=== PATIENT | female | born 1975 | race American Indian/Alaskan Native ===

== ENCOUNTER 2016-11-26 06:19 | Inpatient (IN) | payer OTHER ==
[2016-11-24 12:23] VITALS: BMI 26.6
[2016-11-26] MEDS ORDERED: ceFAZolin IV 2 gm in Dextrose 1 GM/50 ML BAG IVPB ONE (06:49)
[2016-11-26] MEDS ORDERED: Bupivacaine/Epi 0.25%-1:200,000 10 ml PF inj IJ ONE (06:50)
[2016-11-26] MEDS ORDERED: Propofol 10 mg/ml Inj (20 ML) ONE (07:38)
[2016-11-26] MEDS ORDERED: Midazolam 2 MG/2 ML VIAL ONE (07:38)
[2016-11-26] MEDS ORDERED: Lactated Ringer's 1,000 ML IV ONE ×6 (09:00→14:55)
[2016-11-26] MEDS ORDERED: Phenylephrine 10 mg/ml Inj ONE (09:23)
[2016-11-26] MEDS ORDERED: Bupivacaine Liposomal Inj 20 ml INJ ONE (09:28)
[2016-11-26] MEDS ORDERED: Neostigmine Methylsulfate 3mg/3ml Syringe IV ONE (13:24)
[2016-11-26] MEDS ORDERED: Morphine 4 MG/ML VIAL ONE (13:56)
[2016-11-26] MEDS ORDERED: Morphine Monoject Barrel PCA 1mg/ml IV PRN (14:05)
--- NOTE | 2016-11-26 14:46 | PCM.SURG1 ---
Surgeon's Initial Post Op Note - Surgeon's Notes Surgeon: tony quigley md Silver Cleaner: dorinda POST Type of Anesthesia: General Endo, Local Pre-Operative Diagnosis: Chronic pelvic pain. Abnormal uterine bleeding. Endometriosis. fibroid uterus Operative Findings: This was a surgical case of a frozen abdomen due to severe and distorted abdominal and pelvic anatomy. Severe bowel adhessions peritoneal adhessions. enlarged fibroid uterus. Stage 4 endometriosis. severe bowel adhessions at the umbilicus and site of prior bowel. abstruction surgery. large endometrioma left adnexa. normal bladder anatomy as per cystoscopy at the end of the procedure. . Detailed operative report. This is a 41 years old -Citizen Of The [place] female with long-standing history of worsening chronic pelvic pain and dyspareunia, as well as persistent complex adnexal masses. The patient has a known diagnosis of severe endometriosis, enlarged fibroid uterus and associated infertility for many years. The patient underwent several procedures in the past including myomectomies as well as excision of endometriosis which was found to be stage IV last year as well as laparotomy for bowel obstruction following a myomectomy years back. The patient completed her robotic excision of endometriosis last year, it is significantly improved period of time with reduced pelvic pain, reduced abnormal uterine bleeding. A couple of months ago the patient started complaining of severe pain, multiple ER visits for pain management for the recurrence of endometriosis and uterine fibroids. The patient failed conservative management in the past year. The patient completed a reproductive endocrinology consultation following the myomectomy and excision of endometriosis last year. The patient was told all suboptimal ovarian reserve and inability to carry a viable . The patient attempted to proceed with IVF treatment however it was argued against by the narrative writer. Recently the patient agreed to proceed with a hysterectomy as well as excision of a large endometrioma which recurred recently he noted to alleviate this chronic debilitating pelvic pain for many years. Recently done Pelvic MRI was completed as well indicating a large left adnexal mass likely an endometrioma as well as fibroid uterus. Decision was made to proceed with definitive surgical management namely a hysterectomy as well as possible bilateral oophorectomy. The patient clearly understood this definitive decision and understood that a hysterectomy will completely eliminate any possibility of future fertility. In addition the patient understood that removing her ovaries will place her into immediate surgical menopause if both ovaries were to be removed. Lastly, the patient clearly understood the great risk of this recurrent surgery in light of prior multiple abdominal surgeries showing severe bowel adhesions and distorted pelvic and abdominal anatomy due to her endometriosis and prior surgeries. The patient was well aware of the risk of the need to possibly convert from her robotic procedure to an open laparotomy if needed. In addition, the patient understood the risk of possible bowel injury and bowel compromise in completing this very difficult anticipated hysterectomy. Following complete workup at the office which included an ultrasound, biopsies as well as Pap smear a decision was made to proceed with a robotic assisted hysterectomy possible bilateral salpingo- oophorectomy and excision of large left adnexal mass. After proper consent was obtained from the patient she was taken to the operating room where general anesthesia was obtained without difficulty. She was placed in dorsal lithotomy position her legs were placed in adjustable Chadwick stirrups. Careful attention was placed not to over-flex or over-rotate the lower extremities at the hip or at the knee joints. She was prepped and draped appropriately for robotic assisted hysterectomy bilateral salpingo-oophorectomy possible. Solo catheter was inserted under sterile conditions. Exam under anesthesia revealed an enlarged fibroid uterus, large left adnexal mass approximately 10 cm in diameter. Multiple nodules could be palpated in the posterior vagina. In anticipation of a very difficult surgical procedure, a cystoscopy was performed in the beginning of the case, both ureters were stented and an icy green solution was infused to aid in the visualization of both ureters during the difficult surgical dissection. This year ureters cannulation and infusion of the icy green contrast material was completed without difficulty. A standard size Vcare uterine manipulator was inserted through the cervix and secured. Local anesthetic solutions of quarter percent Marcaine was utilized to infiltrate the skin prior to any skin incision. A total of 10-15 mL of 0.25% Marcaine was utilized throughout the procedure. While tenting the abdominal wall a Veress needle was inserted through the umbilicus and pneumoperitoneum was obtained. in anticipation of severe intra-abdominal adhesions and left upper quadrants insurance legal assistant port was inserted first. A 0.8 cm incision was made approximately 7 cm lateral to the umbilicus and a robotic trocar and sleeve were introduced. Robotic camera was inserted and initial survey of the patient's abdomen and pelvis revealed essentially a frozen abdomen. Severe intra -abdominal intrapelvic bowel and peritoneal adhesions. Dense bowel adhesions involving multiple loops of bowel to the anterior abdominal wall as well as to the pelvic sidewall and to the bladder was apparent. An additional port approximately 7 cm left lateral to the first robotic port was inserted as an operative ports for lysis of adhesions and enter lysis. Utilizing sharp and blunt dissection in a very meticulous and careful way extensive lysis of adhesions as well as anterolysis was carried for several hours. Over the particular concern, dense and tightly adherent loops of small bowel were adherent to the umbilicus and to the midline periumbilical abdominal wall. It was noted that that part of the small intestine was involved. The bowel obstruction and bowel surgery several years back, evidence by the silk sutures visualized on the serosa. Complete lysis of adhesions was accomplished in order to visualize the uterus as well as the adnexal mass. A careful and meticulous inspection of the bowel revealed a possible small bowel compromise to the segment tightly adherent to the umbilicus. Decision was made to proceed with intraoperative consultation for possible bowel repair if bowel compromise was evident. Dr. Gupta was called for this consultation. Following a careful inspection decision was made to proceed with a laparotomy for completion of these hysterectomy and excision of adnexal mass as well as repair of small bowel small segment bowel compromise from these tight adhesions. All robotic and laparoscopic instruments were removed under direct visualization. Peritoneum was reduced. And a laparotomy tray and instruments were brought into the room. The robotic instruments were revealed away from the patients bedside. The patient was once again prepped and draped appropriately for laparotomy placed in dorsal lithotomy position. A vertical incision was used to produce procedure, the patient had a vertical incision that keloid from her bowel obstruction surgery years back. Decision was made to remove the large keloid and incision was completed from the suprapubic region all the way several centimeters above the umbilicus. The incision was taken down to the level of the rectus fascia. The fascia was incised in the midline and the incision was extended superiorly and inferiorly in a meticulous and careful fashion. The rectus muscles were then in the midline and incision was extended. The peritoneal cavity was entered and with very careful dissection the bowel which was tightly adherent to the anterior abdominal wall was dissected off carefully. Long and meticulous and careful bowel adhesions dissection was completed and a survey of the entire bowel was completed. A small segment of a small intestine twitch was adherent to the umbilicus was found to have a small significant bowel compromised, according to the general surgeon, Dr. Gupta needed primary repair closure. Please see separate dictation for these bowel repair procedure by Dr. Gupta. Following the completion of these bowel repair, decision was made to proceed with a supracervical hysterectomy bilateral salpingectomy and left adnexal mass excision. Decision was made to preserve the right ovary and remove the left ovary along with adnexal mass. At this time extensive lysis of adhesions freed up the uterus as well as right and left adnexa. The round ligament on the right side was grasped, utilizing the LigaSure device the round ligament was sealed and transected the broad ligament was sealed and transected and carried down all the way to the cervical uterine junction. The right fallopian tube was excised and sent to pathology labeled properly. The right utero-ovarian ligament was sealed and transected preserving the right ovary. In a similar fashion on the patients left side the round ligament was sealed and transected ligament was sealed and divided all the way down to the level of the cervical uterine junction. Bladder flap was created digitally. The uterine vessels on both sides were doubly ligated sealed and transected. The uterus was amputated at the level of the cervix, extracted from the abdomen and sent to pathology. At this time attention was then turned to the left adnexa with a left adnexal mass was meticulously dissected off after both ureters were explored and the retroperitoneum to ascertain safety and avoid compromise during these difficult dissection. Due to the severely distorted pelvic anatomy was necessary to open the retroperitoneum and to dissect out the ureters bilaterally. Both ureters and their courses were visualized, peristalsing without difficulty. Initial in meticulous fashion the bowel adhesions were lysed in multiple areas as well as from the pelvic sidewall. The left adnexal mass which turned out to be a large endometrioma was enucleated and sent to pathology. The abdomen and pelvis were throughout irrigated and cleared of all clots and debris. The peritoneum over D cervical stump was reapproximated after the cervix was ligated with multiple interrupted sutures utilizing 0 Vicryl suture material. Excellent hemostasis was noted. FloSeal as well as fibrillar was utilized to aid in hemostasis. To close this midline vertical incision initially the peritoneum was closed with 2- 0 chromic in continuous fashion. A #1 loop PDS was utilized to close the abdominal fascia in continuous fashion. The subcutaneous adipose tissue was reapproximated with 2-0 chromic in interrupted fashion. Lobo were utilized to close the skin. Pressure dressing was applied to the incision. Due to the extremely distorted pelvic anatomy and the difficulty of completing this procedure, a diagnostic cystoscopy was necessary at the end of the procedure to ascertain uncompromised bladder anatomy. A 30 cystoscope was inserted following the filling / distention of the bladder with approximately 300 mL of normal saline. The dome of the bladder as well as the trigone appeared uncompromised, both ureters were effluxing urine freely, the urethra was normal appearing, no compromise was noted to the bladder. Solo catheter was reinserted to be taken out to next day. All skin incisions were closed utilizing a 4-0 Monocryl in a subcutaneous fashion, Dermabond was applied to all incisions. The camera as well as the insurance legal assistant port were closed in a fascial layer utilizing 2-0 Vicryl in an interrupted fashion. Prior to incision patient received prophylactic antibiotics, prior to closure sponge lap and needle counts are correct x2. Patient tolerated the procedure well and was taken to recovery room in stable condition. Note: This was an exceptionally difficult surgical case due to the severe pelvic viscera anatomical distortion as well as severe bowel adhesions and peritoneal adhesions making it difficult to access the pelvic mass and restore somewhat normal pelvic anatomy. The surgery required a high level of the robotic surgical expertise from the main surgeon as well as the insurance legal assistant surgeons. Post-Operative Diagnosis: Chronic pelvic pain. Abnormal uterine bleeding. Endometriosis. fibroid uterus. Inadvertent enterotomy Operation Performed: robotic hysterectomy BSO attempted >250g. laparotomy abdominal hysterectomy LSO, right salpingectomy. Excision of adnexal mass endometrioma. Extensive lysis of adhessions and enterolysis. canulation stenting of ureters. Exploration of ureters. Cystoscopy. extermly difficult surgical case, required long hours and extreme difficulty due to prior abdominal surgery, stage 4 endoemtriosis, and prior bowel surgery for bowel abstruction in the past. repari of enterotomy by Dr. Gupta intraoperative consultation see sep dictation for the bowel repair. Specimen/Specimens Removed: uterus, tubes and left ovary. left endometrioma Estimated Blood Loss: EBL {In ML}: 500 Blood Products Given: N/A Drains Used: No Drains Post-Op Condition: Good Date of Surgery/Procedure: 11/26/16 Time of Surgery/Procedure: 14:50
[2016-11-26] MEDS ORDERED: Oxycodone/Acetaminophen 5/325 mg Tab PO PRN (14:51)
[2016-11-26] MEDS ORDERED: Trimethobenzamide 200 mg/2 mL Inj IM PRN (14:51)
[2016-11-26] MEDS ORDERED: HYDROmorphone 0.5 mg/0.5 ml ISec ONE (15:07)
[2016-11-26] MEDS: HYDROmorphone 0.5 mg/0.5 ml ISec IVP PRN ×6 (15:23→16:42)
[2016-11-26] MEDS ORDERED: Sodium Chloride 0.9% 1,000 ML IV ONE (16:00)
--- NOTE | 2016-11-26 17:10 | OP ---
PROCEDURE DATE: 11/26/2016 PREOPERATIVE DIAGNOSES: Fibroid uterus, abnormal uterine bleeding, pelvic pain. POSTOPERATIVE DIAGNOSES: Fibroid uterus, abnormal uterine bleeding, pelvic pain. PROCEDURE CARRIED OUT: Exploratory laparotomy and repair of enterotomy. SURGEON: Alon Gupta Jr., MD SOLUTION DESIGN AND ANALYSIS MANAGER: Dr. Boyle ANESTHESIOLOGIST: Mr. Wiseman INDICATIONS: The patient is a 41-year-old woman with a history of multiple problems who I was asked to see on an emergent basis while the patient was under anesthesia and undergoing a robotic hysterect radha. This is suspected bowel injury. DESCRIPTION OF PROCEDURE: The patient was examined with Dr Boyle. Laparoscopically there was a que stion as to a small area adjacent to the anterior abdominal wall. Based on this, we then explored th e area and found that there was, indeed, small bowel. This however, required taking down multiple ad hesions throughout the anterior abdominal wall and exploring the entire abdomen. No other pathology was found except for a large mass in the pelvis. Then, we explored the bowel and identified, also, t he large mass associated with the uterus. This was dissected away, freed up, and then a TA-30 staple r was used across the enterotomy to close it. An additional area adjacent to it, which was in the mi d small bowel, was also controlled with the use of sutures, but this was only a serosal tear. After this was done, Dr. Boyle continued the procedure. My part of the procedure was closure of an entero jourdan. Alon Gupta Jr., MD cc: 56 TT: 11/26/2016 17:09:24 dn
[2016-11-26] MEDS: Sodium Chloride 0.9% 1,000 ML IV SCH (17:30)
[2016-11-26] MEDS: cefOXitin IV 2 gm in Dextrose 2 GM/50 ML BAG IVPB SCH (20:22)
[2016-11-27] MEDS: cefOXitin IV 2 gm in Dextrose 2 GM/50 ML BAG IVPB SCH ×2 (00:39→06:22)
[2016-11-27] MEDS: Sodium Chloride 0.9% 1,000 ML IV SCH ×4 (00:41→17:44)
[2016-11-27 02:29] VITALS: RESP 20
[2016-11-27 08:48] LABS: HEMATOCRIT 29.8 % (34.0-47.0); MEAN CELL VOLUME 89.3 fL (81.0-99.0); MEAN CORPUSCULAR HEMOGLOBIN 29.4 pg (27.0-31.0); MEAN CORPUSCULAR HGB CONC 32.9 g/dL (33.0-37.0); MEAN PLATELET VOLUME 9.9 fL (7.2-11.7); RED CELL DISTRIBUTION WIDTH 12.5 % (11.5-14.5); WHITE BLOOD COUNT 9.8 K/uL (4.8-10.8)
[2016-11-27 09:55] LABS: CHLORIDE 100 mmol/L (98-107); POTASSIUM 3.8 mmol/L (3.6-5.2); SODIUM 134 mmol/L (132-148)
[2016-11-27 09:58] LABS: BLOOD UREA NITROGEN 10 mg/dL (7-17); CALCIUM 7.9 mg/dl (8.6-10.4); CARBON DIOXIDE 26 mmol/L (22-30); GFR AFRICAN-AMERICAN > 60; GLUCOSE,RANDOM 84 mg/dL (65-105)
[2016-11-27] MEDS ORDERED: Oxycodone/Acetaminophen 5/325 mg Tab PO PRN (16:55)
[2016-11-27] MEDS ORDERED: Morphine 4 MG/ML VIAL IVP PRN (17:29)
--- NOTE | 2016-11-27 19:30 | CP.PCM.PN ---
Subjective - Date & Time of Evaluation Date of Evaluation: 11/27/16 Time of Evaluation: 06:45 - Subjective Subjective: Gen Sx: Dr Gupta Pt S&E. ROQUEO. POD#1 s/p robotic hysterectomy w/ ex-lap for LANDON and small bowel enterotomy. Pt states pain is well controlled. Denies N/V, F/C. Using incentive spirometer. Objective - Vital Signs/Intake and Output Vital Signs (last 24 hours): Temp Pulse Resp BP Pulse Ox 98.3 F 86 20 103/64 94 L 11/27/16 16:44 11/27/16 16:44 11/27/16 16:44 11/27/16 16:44 11/27/16 16:44 Intake and Output: 11/27/16 11/28/16 18:59 06:59 Intake Total 8060 Output Total 750 Balance 7310 - Medications Medications: Current Medications Acetaminophen (Tylenol 325mg Tab) 650 mg PO Q6 PRN PRN Reason: Pain, Mild (1-3) Last Admin: 11/27/16 10:39 Dose: 650 mg Sodium Chloride (Sodium Chloride 0.9%) 1,000 mls @ 125 mls/hr IV .Q8H KHOA Last Admin: 11/27/16 17:44 Dose: 125 mls/hr Ketorolac Tromethamine (Toradol) 30 mg IVP Q8H KHOA Stop: 11/29/16 17:01 Last Admin: 11/27/16 17:32 Dose: 30 mg Morphine Sulfate (Morphine) 4 mg IVP Q4 PRN PRN Reason: Severe pain 7 to 10 Ondansetron HCl (Zofran Inj) 4 mg IVP ONCE PRN PRN Reason: Nausea/Vomiting Oxycodone/Acetaminophen (Percocet 5/325 Mg Tab) 2 tab PO Q6H PRN PRN Reason: Mod pain 4 to 6 pain scale Stop: 11/30/16 16:56 Trimethobenzamide HCl (Tigan) 200 mg IM Q6 PRN PRN Reason: Nausea/Vomiting - Labs Labs: 11/27/16 08:27 11/27/16 08:27 - Constitutional Appears: Non-toxic, No Acute Distress - ENT Exam ENT Exam: Mucous Membranes Moist - Respiratory Exam Respiratory Exam: absent: Accessory Muscle Use, Respiratory Distress - Cardiovascular Exam Cardiovascular Exam: REGULAR RHYTHM - GI/Abdominal Exam GI & Abdominal Exam: Soft, Tenderness (post-op and appropriate). absent: Distended, Firm - Neurological Exam Neurological Exam: Alert, Awake, Oriented x3 - Psychiatric Exam Psychiatric exam: Normal Affect, Normal Mood - Skin Skin Exam: Normal Color, Warm Assessment and Plan - Assessment and Plan (Free Text) Assessment: Ok to start CLD further mgmt per Dr Boyle d/w Dr Alonso Martinez, PGY2
[2016-11-27] MEDS ORDERED: Morphine 4 MG/ML VIAL IV SCH (20:00)
--- NOTE | 2016-11-27 21:24 | CP.PCM.PN ---
Subjective - Date & Time of Evaluation Date of Evaluation: 11/27/16 Time of Evaluation: 09:00 - Subjective Subjective: pt reports feeling well, denied any SOB or palpitations, denied any cough. pt with adequate analgesia currently with CEMENTER HAND, folley catheter draining adequately. Objective - Vital Signs/Intake and Output Vital Signs (last 24 hours): Temp Pulse Resp BP Pulse Ox 98.3 F 86 20 103/64 94 L 11/27/16 16:44 11/27/16 16:44 11/27/16 16:44 11/27/16 16:44 11/27/16 16:44 Intake and Output: 11/27/16 11/28/16 18:59 06:59 Intake Total 8060 Output Total 750 Balance 7310 - Medications Medications: Current Medications Acetaminophen (Tylenol 325mg Tab) 650 mg PO Q6 PRN PRN Reason: Pain, Mild (1-3) Last Admin: 11/27/16 10:39 Dose: 650 mg Sodium Chloride (Sodium Chloride 0.9%) 1,000 mls @ 125 mls/hr IV .Q8H KHOA Last Admin: 11/27/16 17:44 Dose: 125 mls/hr Ketorolac Tromethamine (Toradol) 30 mg IVP Q8H KHOA Stop: 11/29/16 17:01 Last Admin: 11/27/16 17:32 Dose: 30 mg Morphine Sulfate (Morphine) 4 mg IVP Q4 PRN PRN Reason: Severe pain 7 to 10 Ondansetron HCl (Zofran Inj) 4 mg IVP ONCE PRN PRN Reason: Nausea/Vomiting Oxycodone/Acetaminophen (Percocet 5/325 Mg Tab) 2 tab PO Q6H PRN PRN Reason: Mod pain 4 to 6 pain scale Stop: 11/30/16 16:56 Trimethobenzamide HCl (Tigan) 200 mg IM Q6 PRN PRN Reason: Nausea/Vomiting - Labs Labs: 11/27/16 08:27 11/27/16 08:27 - Constitutional Appears: Well, Non-toxic, No Acute Distress - Head Exam Head Exam: ATRAUMATIC - Eye Exam Eye Exam: EOMI - ENT Exam ENT Exam: Normal Exam - Neck Exam Neck Exam: Full ROM - Respiratory Exam Respiratory Exam: Clear to Ausculation Bilateral, NORMAL BREATHING PATTERN - Cardiovascular Exam Cardiovascular Exam: REGULAR RHYTHM - GI/Abdominal Exam GI & Abdominal Exam: Firm, Diminished Bowel Sounds - Extremities Exam Extremities Exam: Full ROM, Normal Inspection - Neurological Exam Neurological Exam: Alert, Awake, Oriented x3 - Psychiatric Exam Psychiatric exam: Normal Affect, Normal Mood - Skin Skin Exam: Intact, Normal Color Assessment and Plan - Assessment and Plan (Free Text) Assessment: s/p abdominal hysterectomy, excision of endometriosis, enterotomy repair POD #1 Afebrile stable hemodynamics adequate analgesia Plan: clear liquid diet CEMENTER HAND discontinued encourage ambulation follow up chemistry / hematology in AM discontinue Solo catheter in AM
[2016-11-27] MEDS ORDERED: Sodium Chloride 0.9% 1,000 ML IV SCH (22:15)
[2016-11-28 08:48] LABS: BASO % 0.1 % (0.0-2.0); EOS # 0.3 K/uL (0.0-0.7); HEMATOCRIT 26.6 % (34.0-47.0); LYMPH # 1.1 K/uL (1.0-4.3); LYMPH % 10.9 % (20.0-40.0); MEAN CORPUSCULAR HGB CONC 33.3 g/dL (33.0-37.0); MONO # 0.5 K/uL (0.0-0.8); RED CELL DISTRIBUTION WIDTH 12.7 % (11.5-14.5); WHITE BLOOD COUNT 10.1 K/uL (4.8-10.8)
--- NOTE | 2016-11-28 08:53 | CP.PCM.PN ---
Subjective - Date & Time of Evaluation Date of Evaluation: 11/28/16 Time of Evaluation: 08:50 - Subjective Subjective: Gen Sx: Dr Gupta Pt S&E. NAEO. Tolerating CLD. Passing flatus. Had BM this morning. Denies N /V, F/C. Pt states she would like to go home today. Objective - Vital Signs/Intake and Output Vital Signs (last 24 hours): Temp Pulse Resp BP Pulse Ox 98.6 F 104 H 20 95/55 L 94 L 11/28/16 04:48 11/28/16 04:48 11/28/16 04:48 11/28/16 04:48 11/28/16 04:48 Intake and Output: 11/28/16 11/28/16 06:59 18:59 Intake Total 1950 Output Total 1050 Balance 900 - Medications Medications: Current Medications Acetaminophen (Tylenol 325mg Tab) 650 mg PO Q6 PRN PRN Reason: Pain, Mild (1-3) Last Admin: 11/28/16 06:28 Dose: 650 mg Sodium Chloride (Sodium Chloride 0.9%) 1,000 mls @ 75 mls/hr IV .[id number] [facility] Ketorolac Tromethamine (Toradol) 30 mg IVP Q8H [facility] Stop: 11/29/16 17:01 Last Admin: 11/28/16 01:20 Dose: 30 mg Morphine Sulfate (Morphine) 4 mg IVP Q4 PRN PRN Reason: Severe pain 7 to 10 Ondansetron HCl (Zofran Inj) 4 mg IVP ONCE PRN PRN Reason: Nausea/Vomiting Oxycodone/Acetaminophen (Percocet 5/325 Mg Tab) 2 tab PO Q6H PRN PRN Reason: Mod pain 4 to 6 pain scale Stop: 11/30/16 16:56 Trimethobenzamide HCl (Tigan) 200 mg IM Q6 PRN PRN Reason: Nausea/Vomiting - Labs Labs: 11/27/16 08:27 11/27/16 08:27 - Constitutional Appears: No Acute Distress - ENT Exam ENT Exam: Normal Exam - Respiratory Exam Respiratory Exam: absent: Accessory Muscle Use, Respiratory Distress - Cardiovascular Exam Cardiovascular Exam: REGULAR RHYTHM - GI/Abdominal Exam GI & Abdominal Exam: Soft, Tenderness (appropriate post-op). absent: Distended - Neurological Exam Neurological Exam: Alert, Awake, Oriented x3 - Psychiatric Exam Psychiatric exam: Normal Affect, Normal Mood - Skin Skin Exam: Normal Color, Warm Assessment and Plan - Assessment and Plan (Free Text) Assessment: 41F POD#2 s/p hysterectomy w/ Krish and repair of enterotomy Plan: adv to regular diet further mgmt per Dr Boyle please reconsult if necessary d/w Dr Alonso Martinez, PGY2
[2016-11-28 09:01] LABS: CHLORIDE 103 mmol/L (98-107)
[2016-11-28 09:02] LABS: POTASSIUM 3.2 mmol/L (3.6-5.2); SODIUM 137 mmol/L (132-148)
[2016-11-28 09:04] LABS: ALB/GLOB RATIO 1.2 (1.0-2.1); ALKALINE PHOSPHATASE 49 U/L (38-126); ALT/SGPT 13 U/L (9-52); AST/SGOT 21 U/L (14-36); BILIRUBIN,TOTAL 0.7 mg/dL (0.2-1.3); BLOOD UREA NITROGEN 11 mg/dL (7-17); CARBON DIOXIDE 24 mmol/L (22-30); GFR AFRICAN-AMERICAN > 60; GLUCOSE,RANDOM 136 mg/dL (65-105); TOTAL PROTEIN 6.1 g/dL (6.3-8.3)
[2016-11-28 09:05] LABS: CALCIUM 8.6 mg/dl (8.6-10.4); MAGNESIUM 1.8 mg/dL (1.6-2.3); PHOSPHOROUS 2.3 mg/dL (2.5-4.5)
[2016-11-28 09:10] VITALS: BP 116/74; PULSE 117; TEMP 99.6; O2SAT 96
[2016-11-28] MEDS ORDERED: Potassium Chloride 20 mEq ER Tab PO ONE (10:56)
== END 2016-11-28 13:48 | disposition home or self-care (01) | DRG 742 ==
LOC: C.OPSURG 06:19 → C.6T 14:51
PROVIDERS: ADMIT Obstetrics & Gynecology; ATTEND Obstetrics & Gynecology
PROC: 0UJD4ZZ Inspection of Uterus and Cervix, Percutaneous Endoscopic Approach (ICD-10-PCS; 2016-11-26)
PROC: 0UN40ZZ Release Uterine Supporting Structure, Open Approach (ICD-10-PCS; 2016-11-26)
PROC: 0UT50ZZ Resection of Right Fallopian Tube, Open Approach (ICD-10-PCS; 2016-11-26)
PROC: 0UT60ZZ Resection of Left Fallopian Tube, Open Approach (ICD-10-PCS; 2016-11-26)
PROC: 0UT10ZZ Resection of Left Ovary, Open Approach (ICD-10-PCS; 2016-11-26)
PROC: 0TJB8ZZ Inspection of Bladder, Via Natural or Artificial Opening Endoscopic (ICD-10-PCS; 2016-11-26)
PROC: 0UT90ZZ Resection of Uterus, Open Approach (ICD-10-PCS; principal; 2016-11-26 11:00)
PROC: 0DQ80ZZ Repair Small Intestine, Open Approach (ICD-10-PCS; 2016-11-26 11:00)
DX: D25.1 Intramural leiomyoma of uterus (principal); S36.438A Laceration of other part of small intestine, initial encounter; N80.1 Endometriosis of ovary; G89.29 Other chronic pain; N93.9 Abnormal uterine and vaginal bleeding, unspecified; R19.00 Intra-abdominal and pelvic swelling, mass and lump, unspecified site; N84.0 Polyp of corpus uteri; D25.2 Subserosal leiomyoma of uterus; K66.0 Peritoneal adhesions (postprocedural) (postinfection)